=== PATIENT | female | born 1990 | race African-American/Black ===

== ENCOUNTER 2024-01-03 11:15 | Inpatient (IN) | payer MEDICAID, OTHER, SELFPAY ==
[2024-01-03] MEDS ORDERED: Ondansetron PF 4 MG/2 ML Vial IVP PRN ×2 (11:41→13:12)
[2024-01-03] MEDS ORDERED: Tranexamic Acid 1,000 MG/10 ML VIAL IVP PRN (11:41)
[2024-01-03] MEDS ORDERED: Carboprost 250 MCG/ML AMP IM PRN (11:41)
[2024-01-03] MEDS ORDERED: Lidocaine 1% (PF) 30 ML VIAL SC PRN (11:41)
[2024-01-03] MEDS ORDERED: Promethazine HCl 25 MG/ML VIAL IM PRN (11:41)
[2024-01-03] MEDS ORDERED: hydrALAZINE 20 MG/ML VIAL SLOW IVP PRN ×2 (11:41→13:12)
[2024-01-03] MEDS ORDERED: Acetaminophen 500 MG TAB PO PRN (11:41)
[2024-01-03] MEDS ORDERED: Lactated Ringer's 1,000 ML IV SCH (11:45)
[2024-01-03] MEDS ORDERED: Oxytocin 30 units/NS 500 ML 500 ML IV SCH (11:45)
[2024-01-03 11:54] VITALS: BMI 24.7
[2024-01-03] MEDS: Oxytocin 30 units/NS 500 ML 500 ML ONE (12:11)
[2024-01-03] MEDS ORDERED: Penicillin G Potassium 5 MILL.UNITS in Sodium Chloride 0.9% 100 ML IVPB SCH (12:30)
[2024-01-03 13:07] LABS: Amphetamine Not Detected (NotDetected); Barbiturates Screen Not Detected (NotDetected); Benzodiazepine Screen Not Detected (NotDetected); Cocaine Metabolite Screen Not Detected (NotDetected); Methadone Not Detected (NotDetected); Methamphetamine Not Detected (NotDetected); Opiate Screen Not Detected (NotDetected); Oxycodone Screen Not Detected (NotDetected); Phencyclidine (PCP) Not Detected (NotDetected); THC/Cannabinoid Screen Not Detected (NotDetected); Tricyclic Screen Not Detected (NotDetected)
[2024-01-03 13:08] LABS: Hematocrit 30.8 % (34.9-44.5); Hemoglobin 9.7 g/dL (12.0-15.5); Mean Corpuscular HGB CONC 31.5 g/dL (32.0-36.0); Mean Corpuscular Volume 82.6 fL (81.6-98.3); Mean Platelet Volume 10.2 fL (7.4-10.4); Platelet Count 192 10x3/uL (150-450); Red Blood Cell (RBC) Count 3.73 10x6/uL (3.90-5.03); White Blood Cell (WBC) Count 9.3 10x3/uL (3.5-10.5)
[2024-01-03] MEDS: Misoprostol 200 MCG TAB PR PRN (13:10)
[2024-01-03] MEDS: Methylergonovine 0.2 MG/ML VIAL IM PRN (13:10)
[2024-01-03] MEDS ORDERED: Boostrix 0.5 ML (Tdap) VIAL (>/=7 yrs of age) IM ONE (13:12)
[2024-01-03] MEDS ORDERED: Preparation H Ointment 28 GM TUBE PR PRN (13:12)
[2024-01-03] MEDS ORDERED: Benzocaine-Menthol 82.5 ML CAN TOP PRN (13:12)
[2024-01-03] MEDS ORDERED: Bisacodyl 10 MG SUPP PR PRN (13:12)
[2024-01-03] MEDS ORDERED: Milk Of Magnesia 30 ML UDCUP PO PRN (13:12)
[2024-01-03] MEDS ORDERED: Lanolin Ointment 7 GM TUBE TOP PRN (13:12)
[2024-01-03] MEDS: Ibuprofen 800 MG TAB PO SCH (13:24)
[2024-01-03 13:42] LABS: Syphilis Antibody Nonreactive (Nonreactive); Syphilis Antibody Index 0.08 S/CO (<1.00 Non-Reactive)
[2024-01-03 13:44] LABS: HBsAg Index 0.25 S/CO (0-0.99); HIV (1/2) Antibody/Antigen Non-Reactive (NonReactive); HIV 1/2 INDEX 0.11 S/CO (<1.00); Hep B Surf Ag - L&D Non-Reactive S/CO (NonReactive)
[2024-01-03] MEDS ORDERED: Penicillin G 2.5 MILL.units 2.5 MILL.UNITS in Premix 1 BAG IVPB SCH (16:30)
[2024-01-03] MEDS: Penicillin G Potassium 5 MILL.UNITS VIAL ONE (19:59)
[2024-01-03] MEDS: Lidocaine 1% (PF) 30 ML VIAL ONE (19:59)
[2024-01-03] MEDS: Ferrous Sulfate 325 MG TAB PO SCH (19:59)
[2024-01-03] MEDS: Docusate 100 MG CAP PO SCH (21:53)
[2024-01-04] MEDS: Prenatal Vitamin 1 TAB PO SCH (09:18)
[2024-01-05 09:16] VITALS: BP 135/79; TEMP 97.7
== END 2024-01-05 14:35 | disposition home or self-care (01) | DRG 807 ==
LOC: CSHLD 11:15 → CSHPP 15:55
PROVIDERS: ADMIT Obstetrics & Gynecology; ATTEND Obstetrics & Gynecology
PROC: 10E0XZZ Delivery of Products of Conception, External Approach (ICD-10-PCS; principal; 2024-01-03)
DX: O48.0 Post-term pregnancy (principal); Z37.0 Single live birth; Z3A.40 40 weeks gestation of pregnancy; O09.43 Supervision of pregnancy with grand multiparity, third trimester
CPT/HCPCS: 36415; 51701; 80306; 85027; 86762; 86780; 86850; 86900; 86901; 87340; 87389; 88307; J2210; J2590